=== PATIENT | male | born 1950 | race Caucasian/White ===

== ENCOUNTER 2018-05-03 05:19 | Inpatient (IN) ==
[2018-05-03] MEDS ORDERED: Chlorhexidine Gluconate 2% 1 Pack (2 Cloths) TOPICAL ONE (05:42)
[2018-05-03] MEDS ORDERED: Metoprolol Tartrate 25 MG Tablet PO ONE (05:42)
[2018-05-03] MEDS ORDERED: Dexamethasone Inj 20 MG/5 ML Vial IV.PUSH PRN (05:46)
[2018-05-03] MEDS ORDERED: Sodium Chlor 0.9% Inj 500 ML IV.SIG SCH (06:00)
[2018-05-03] MEDS ORDERED: Vancomycin Inj 1,000 MG in Sodium Chlor 0.9% Inj 250 ML IV.SIG SCH (06:00)
[2018-05-03] MEDS ORDERED: Tranexamic Acid Inj 1,430 MG in Sodium Chlor 0.9% Inj 100 ML IV.SIG SCH (06:00)
[2018-05-03] MEDS ORDERED: Chlorhexidine 4% Topical 120 APPLIC/120 ML Bottle TOPICAL SCH (06:00)
[2018-05-03] MEDS ORDERED: Sodium Chlor 0.9% Inj 40 ML, Bupivacaine Liposo PF 1.3% Inj 20 ML P-ARTICULR SCH ×2 (06:00)
[2018-05-03] MEDS ORDERED: Ketorolac Inj 30 MG/ML (IVP) Vial IV.PUSH ONE (06:47)
[2018-05-03] MEDS ORDERED: Neostigmine Inj 5 MG/5 ML Syringe IV.PUSH ONE (06:47)
[2018-05-03] MEDS ORDERED: Glycopyrrolate Inj 1 MG/5 ML Syringe IV.PUSH ONE (06:47)
[2018-05-03] MEDS ORDERED: Lidocaine PF 1% Inj 5 ML Syringe OTHER ONE (06:47)
[2018-05-03] MEDS ORDERED: Post-op Orders (for Pharmacy) OTHER STA (06:50)
[2018-05-03] MEDS ORDERED: HYDROmorphone PF Inj 1 MG/ML Ampul IV.PUSH PRN (06:50)
[2018-05-03] MEDS ORDERED: Zolpidem Tartrate 5 MG Tablet PO PRN (06:50)
[2018-05-03] MEDS: ceFAZolin 2 GM Premix Inj 2 GM/50 ML PIGGYBACK IV.SIG SCH ×2 (06:58→13:09)
[2018-05-03] MEDS ORDERED: Tranexamic Acid Inj 3,000 MG in Sodium Chlor 0.9% Inj 100 ML P-ARTICULR SCH (08:00)
--- NOTE | 2018-05-03 08:52 | XR ---
EXAM DATE: 05/03/2018 8:44 AM EST AGE/SEX: 67 years / Male INDICATIONS: Post op right anterior hip. CLINICAL DATA: This is the patient's initial encounter. Patient reports that signs and symptoms have been present for 1 day and indicates a pain score of Nonresponsive. MEDICAL/SURGICAL HISTORY: None. None. COMPARISON: [facility] [place], PELVIS AP ONLY, 12/25/2010. . CONCLUSION: Fluoroscopic images during right hip arthroplasty. No hardware loosening or new fracture. Electronically signed by: Wong Sanchez MD 05/03/2018 8:51 AM EST
[2018-05-03] MEDS ORDERED: fentaNYL Citrate Inj 100 MCG/2 ML Ampul ONE (09:00)
[2018-05-03] MEDS ORDERED: Morphine Inj 4 MG/ML Vial ONE (09:00)
--- NOTE | 2018-05-03 09:53 | MP ---
cc: Benji Rucker MD DATE OF OPERATION: 05/03/2018 PREOPERATIVE DIAGNOSIS: Right hip osteoarthritis. POSTOPERATIVE DIAGNOSIS: Right hip osteoarthritis. PROCEDURE PERFORMED: Right total hip arthroplasty. SURGEON: Benji Rucker MD. TRANSFORMATION ARCHITECT: DANYELL Mcmullen. ANESTHESIA: General. ESTIMATED BLOOD LOSS: 200 mL. COMPLICATIONS: None. IMPLANTS: DePuy Corail size 12 press-fit standard offset femoral stem, size 54 solid [place] Gription cup, 36 mm highly cross-linked polyethylene neutral liner, +5 neck, 36 mm ceramic head. JUSTIFICATION: The patient is a 67-year-old male with history of severe osteoarthritis involving the right hip. He has severe disabling pain with standing, walking, ambulation with weightbearing, and severe pain at rest. He has failed greater than 3 months of nonoperative conservative treatment to include medication therapy, injections, ambulatory assistive aids, home exercise program, activity modification, and weight loss. X-rays of right hip reveal severe osteoarthritis with [id number] joint space narrowing, subchondral sclerosis, subchondral cyst, osteophyte formation with superior subluxation. The patient was counseled as to the risks, benefits, and alternatives to a total hip arthroplasty. The risks were discussed which include, but are not limited to anesthesia, bleeding, infection, damage to nerves and blood vessels, pain, stiffness, failure of components, fracture dislocations, leg length discrepancies, blood clots, pulmonary embolism, and even . The patient's pain is severe. He favored the benefits over the risks and he did wish to proceed with surgery. PROCEDURE IN DETAIL: Written consent was obtained. The patient was identified by name, taken to the operating room and placed supine on operating table. General endotracheal anesthesia was administered to the patient as well as 2 grams of IV Ancef and 1 gram of IV vancomycin. The right and left feet were placed in the padded traction boots. The right hip and right lower extremity were prepped and draped using isopropyl alcohol, Hibiclens solution, and ChloraPrep solution. After a timeout was performed, a longitudinal incision made over the anterolateral aspect of the right hip. The fascial layer was incised. Dissection was carried over the tensor fascia honorio beneath the rectus femoris to allow exposure of the anterior capsule. Capsulotomy incision was performed. An oscillating saw was used to perform the femoral neck cut. The osteoarthritic femoral head and neck component was removed. A 10 blade scalpel was used to excise the labrum. Sequential reaming begun at size 47 was carried through to a size 54. A solid [place] 54 mm Gription cup was implanted in approximately 45 degrees of abduction and 10 degrees of anteversion. There was good purchase and fixation after insertion of the cup. A screw hole eliminator was placed, followed by the neutral liner. The liner was impacted in place and tested for stability. Attention was turned to the femur where the leg was externally rotated, extended, and adducted. The capsule was released off the undersurface of the greater trochanter to allow for elevation and lateralization of the femur. A box cutting osteotome was easily entered into the intramedullary canal of the femur and was followed by a canal finder and sequential broaching up to size 12. A calcar planer was used to plane the calcar. Trial head and neck combinations were evaluated and final components implanted. With the current components, the leg could achieve full extension down to the ground with external rotation of 70 degrees without evidence of anterior instability or impingement. Fluoroscopic imaging showed appropriate implantation of components. Surgical wound was thoroughly irrigated with sterile saline pulse antibiotic-impregnated solution. The fascial layer was closed with #1 Vicryl suture, subcutaneous layer with 2-0 Vicryl suture, skin was closed with Dermabond. Sterile dressing applied. The patient tolerated the procedure well. No intraoperative complications noted. Sascha Cruz PA-C, was present throughout the entire procedure to include patient positioning and the procedure itself. The medical necessity of a physician virtual customer assistant was indicated in this case due to the complexity of the procedure. He assisted with appropriate manipulation of the leg and also retraction of muscle, tendon, bone, and neurovascular structures. He assisted with preparation of bone and also implantation of the prosthetic replacement. MD EZE Muñoz/martín , 08:39 AM , 08:46 AM
--- NOTE | 2018-05-03 10:16 | XR ---
EXAM DATE: 05/03/2018 10:12 AM EST AGE/SEX: 67 years / Male INDICATIONS: Post-op right hip. CLINICAL DATA: This is the patient's initial encounter. Patient reports that signs and symptoms have been present for 1 day and indicates a pain score of 2/10. MEDICAL/SURGICAL HISTORY: None. None. COMPARISON: [facility], HIP LEFT AP ONLY WO AP PELVIS, 12/25/2010. . FINDINGS: Post surgical changes following right hip replacement are noted. Femoral and acetabular components ar e well seated and satisfactorily aligned. Bony structures remain intact without evidence of acute com plication. Left hip prosthesis from prior replacement is noted. CONCLUSION: Satisfactory postoperative appearance of the right hip and pelvis following replacement. Previous left hip replacement. Electronically signed by: Luke Cristobal MD 05/03/2018 10:14 AM EST
[2018-05-03] MEDS: Senna/Docusate Sodium 8.6/50 MG Tablet PO SCH ×2 (10:55→20:04)
[2018-05-03] MEDS: Multivitamin/Minerals Therapeutic Tablet PO SCH ×2 (10:57→20:52)
[2018-05-03] MEDS: Fenofibrate 145 MG Tablet PO SCH (11:02)
[2018-05-03] MEDS: ceFAZolin 2 GM Premix Inj 2 GM/100 ML BAG IV.SIG SCH ×2 (14:00→17:36)
--- NOTE | 2018-05-03 16:24 | P.CON ---
History of Present Illness Service: [facility] Consult date: 05/03/18 Requesting Physician: Benji Rucker Reason for Consult: Medical management Primary Care Provider: Tristan Miguel DO History of Present Illness: This is a pleasant 67-year-old white male with significant past medical history of multiple myeloma with recent recurrence and stem cell transplant June 2017 , prostate cancer status post radiation completed 2017, osteoarthritis. Patient has history of severe osteoarthritis of the right hip with significant pain and difficulty with activities of daily living. Patient failed outpatient nonoperative treatment therefore surgery was recommended. Patient underwent right total hip arthroplasty. Patient endorses history of multiple myeloma originally diagnosed in 2004 for which she had a stem cell transplant. In June he had a recurrence and had another stem cell transplant at the [facility]. He also completed radiation treatment for prostate cancer December of this year. He is on Revlimid which was stopped prior to surgery because of risk of infection. Last week he received 2 shots of Neupogen. His oncologist is Dr. Steele. Patient denies any recent fever, no chills. No recent infections. Hospitalist services are requested for medical management. Review of Systems All other systems reviewed negative except as stated in HPI PMFSH - History History Provided By: Patient, Family Member - Medical History Medical History: Medical History (Last Reviewed 05/03/18 @ 16:17 by FRANKLIN Mims) History of radiation exposure History of radiation therapy Multiple myeloma Peripheral neuropathy Presence of orthopedic joint implant Right hip pain - Surgical History Surgical History: Surgical History (Last Reviewed 05/03/18 @ 16:17 by FRANKLIN Mims) History of tonsillectomy and adenoidectomy History of total left hip replacement Hx of cataract surgery Hx of kyphoplasty Hx of stem cell transplant - Family History Family History: Family History (Last Updated 05/03/18 @ 16:17 by FRANKLIN Mims) Father Coronary artery disease Mother Coronary artery disease - Social History I have reviewed the patient's Social History: Yes - Tobacco History Second Hand Smoke Exposure: No Tobacco Use In Past 30 Days: No (stopped 03/08/18) Smoking Status: Light tobacco smoker Tobacco Type: Cigars (Quit smoking cigars 2 months ago) - Alcohol History How Often Do You Have a Drink Containing Alcohol: 2 to 3 times a week - Substance Use History Substance History: No History of Abuse - Travel History Recent Travel in the [place] Within the Last 8 Weeks: Yes Recent Travel Out of the Country Within the Last 8 Weeks: No Medications and Allergies Active Medications: Active Medications Hydrocodone Bitart/Acetaminophen (Tarrs 7.5/325) 1 tab PO Q4H PRN PRN Reason: PAIN LESS THAN 5 ON SCALE Last Admin: 05/03/18 11:53 Dose: 1 tab Hydrocodone Bitart/Acetaminophen (Tarrs 7.5/325) 2 tab PO Q6H PRN PRN Reason: PAIN SCALE 5 TO 10 Al Hydroxide/Mg Hydroxide (Milk Of Magnesia Liq) 30 ml PO BID PRN PRN Reason: Mild Constipation Aspirin (Aspirin Chew) 81 mg PO BID COUNTS INCLUDE 234 BEDS AT THE [facility] Last Admin: 05/03/18 10:36 Dose: Not Given Atorvastatin Calcium (Lipitor) 20 mg PO DAILY COUNTS INCLUDE 234 BEDS AT THE [facility] Last Admin: 05/03/18 11:02 Dose: Not Given Chlorhexidine Gluconate (Hibiclens 4% Topical) 1 applicatio TOPICAL ONCE COUNTS INCLUDE 234 BEDS AT THE [facility] Stop: 05/07/18 05:59 Last Admin: 05/03/18 06:00 Dose: 1 applicatio Dexamethasone Sodium Phosphate (Decadron Inj) 10 mg IV.PUSH [employer]OR [employer] PRN PRN Reason: PRE-OP IN OR HOLDING Stop: 05/03/18 22:00 Last Admin: 05/03/18 06:08 Dose: 10 mg Diphenhydramine HCl (Benadryl) 25 mg PO Q6H PRN PRN Reason: ITCHING Fenofibrate (Tricor) 145 mg PO DAILY COUNTS INCLUDE 234 BEDS AT THE [facility] Last Admin: 05/03/18 11:02 Dose: Not Given Hydromorphone HCl (Dilaudid Pf Inj) 1 mg IV.PUSH Q3H PRN PRN Reason: BREAKTHROUGH PAIN Sodium Chloride (Ns Inj) 500 mls @ 30 mls/hr IV.SIG .Q10H COUNTS INCLUDE 234 BEDS AT THE [facility] Last Admin: 05/03/18 06:23 Dose: Not Given Lactated Ringer's (Lr 1000 Ml Inj) 1,000 mls @ 30 mls/hr IV.SIG .Q24H COUNTS INCLUDE 234 BEDS AT THE [facility] Stop: 05/04/18 05:44 Last Admin: 05/03/18 06:05 Dose: 30 mls/hr Cefazolin Sodium/Dextrose (Ancef 2 Gm Premix Inj) 2 gm in 50 mls @ 100 mls/hr IV.SIG [employer] COUNTS INCLUDE 234 BEDS AT THE [facility] Stop: 05/07/18 05:59 Last Admin: 05/03/18 13:09 Dose: 100 mls/hr Vancomycin HCl 1,000 mg/ (Sodium Chloride) 250 mls @ 250 mls/hr IV.SIG [employer] COUNTS INCLUDE 234 BEDS AT THE [facility] Stop: 05/06/18 05:47 Last Infusion: 05/03/18 08:08 Dose: Infused Lactated Ringer's (Lr 1000 Ml Inj) 1,000 mls @ 80 mls/hr IV.CONT .[id number] COUNTS INCLUDE 234 BEDS AT THE [facility] Last Admin: 05/03/18 09:09 Dose: 80 mls/hr Cefazolin/Sodium Chloride (Ancef 2 Gm Premix Inj) 2 gm in 100 mls @ 200 mls/hr IV.SIG Q6H COUNTS INCLUDE 234 BEDS AT THE [facility] Stop: 05/04/18 00:29 Lactulose (Lactulose Liq) 30 ml PO DAILY PRN PRN Reason: SEVERE CONSITIPATION Miscellaneous Information ([facility] Nursing Information) 1 each OTHER UNSCH PRN PRN Reason: SEE LABEL COMMENTS Stop: 05/04/18 08:54 Multivitamins/Minerals (Theragran-M) 1 tab PO BID COUNTS INCLUDE 234 BEDS AT THE [facility] Stop: 07/02/18 08:59 Last Admin: 05/03/18 10:57 Dose: Not Given Ondansetron HCl (Zofran Inj) 4 mg IV.PUSH Q6H PRN PRN Reason: NAUSEA OR VOMITING Povidone Iodine (Betadine 7.5% Scrub) 1 applicatio TOPICAL ONCE COUNTS INCLUDE 234 BEDS AT THE [facility] Stop: 05/07/18 05:59 Senna/Docusate Sodium (Sylvia-Colace) 1 tab PO BID COUNTS INCLUDE 234 BEDS AT THE [facility] Last Admin: 05/03/18 10:55 Dose: 1 tab Sennosides (Senokot) 17.2 mg PO BID PRN PRN Reason: Moderate Constipation Sodium Chloride (Ns Flush) 2 ml IV.FLUSH BID COUNTS INCLUDE 234 BEDS AT THE [facility] Last Admin: 05/03/18 10:57 Dose: 2 ml Sodium Chloride (Ns Flush) 2 ml IV.FLUSH PRN PRN PRN Reason: FLUSH AFTER USING IV ACCESS Zolpidem Tartrate (Ambien) 5 mg PO HS PRN PRN Reason: INSOMNIA Allergies Allergy/AdvReac Type Severity Reaction Status Date / Time No Known Allergies Allergy Verified 05/03/18 06:06 Home Medications Medication Instructions Recorded Confirmed Type acyclovir 400 mg PO BID 04/15/18 05/03/18 History aspirin [Aspirin Low Dose] 81 mg PO DAILY 04/15/18 05/03/18 History atorvastatin 20 mg PO DAILY 04/15/18 05/03/18 History fenofibrate 160 mg PO DAILY 04/15/18 05/03/18 History lenalidomide [Revlimid] 10 mg PO DIRECTED 04/15/18 05/03/18 History multivitamin [Daily Multiple] 1 tab PO DAILY 04/15/18 05/03/18 History omega-3 fatty acids-fish oil [Fish 1 cap PO DAILY 04/15/18 05/03/18 History Oil] Physical Exam Vital signs: Vital Signs 05/03/18 06:10 05/03/18 08:52 05/03/18 09:00 Temperature 98.7 F 97.7 F Pulse Rate 61 71 60 Respiratory Rate 16 20 15 Blood Pressure 146/67 H 111/68 134/62 Pulse Oximetry 98 98 98 05/03/18 09:15 05/03/18 09:30 05/03/18 09:50 Temperature 97.5 F L 97.3 F L Pulse Rate 60 59 L 58 L Respiratory Rate 16 15 16 Blood Pressure 134/67 132/65 123/65 Pulse Oximetry 99 98 97 05/03/18 16:00 Temperature 97.6 F Pulse Rate 73 Respiratory Rate 16 Blood Pressure 130/63 Pulse Oximetry 93 L Intake & Output 05/02/18 05/03/18 05/03/18 18:59 06:59 18:59 Intake Total 1800.3 / 1800.3 Output Total 500 / 500 Balance 1300.3 / 1300.3 Weight 95.4 kg Intake: IV 414.3 / 414.3 Cyklokapron Inj 1,430 MG In NS 114.3 / 114.3 Inj 100 ML @ 200 mls/hr IV.SIG ONCE ANGELIKA Rx#:[id number] Vancomycin Inj 1,000 MG In NS 250 / 250 Inj 250 ML @ 250 mls/hr IV.SIG [employer] ANGELIKA Rx#:[id number] Ancef 2 GM Premix Inj 2 gm In 50 / 50 50 ml @ 100 mls/hr IV.SIG [employer] ANGELIKA Rx#:[id number] Anesthesia Amount 1386 / 1386 Output: Urine 100 / 100 Estimated Blood Loss 400 / 400 Other: Date of Last Bowel Movement 05/03/18 Weight On Admission 95.4 kg Narrative: GENERAL: Well-nourished, well-developed patient in no apparent distress. SKIN: Warm and dry. HEAD: Atraumatic. Normocephalic. EYES: Pupils equal and round. No scleral icterus. No injection or drainage. ENT: No nasal bleeding or discharge. Mucous membranes pink and moist. NECK: Trachea midline. No JVD. CARDIOVASCULAR: Regular rate and rhythm. RESPIRATORY: No accessory muscle use. Clear to auscultation. Breath sounds equal bilaterally. GASTROINTESTINAL: Abdomen soft, non-tender, nondistended. Hepatic and splenic margins not palpable. MUSCULOSKELETAL: Right anterior hip with dressing dry and intact. No other joint abnormalities. Bilateral lower extremities without any clubbing, no cyanosis, no edema. Pedal pulses 2+ bilateral NEUROLOGICAL: Awake and alert. No obvious cranial nerve deficits. Motor grossly within normal limits. Five out of 5 muscle strength in the arms and legs. Normal speech. PSYCHIATRIC: Appropriate mood and affect; insight and judgment normal. Assessment and Plan - Plan 67-year-old male with history of osteoarthritis of right hip, status post right total hip arthroplasty. Status post right total hip arthroplasty Continue with postoperative care Pain management Aspirin for DVT prophylaxis Bowel regimen Physical therapy History of recurrent multiple myeloma, status post stem cell transplant in June 2017. Received 2 shots of Neupogen last week WBC 2.8 on April 15 -CBC in the morning Monitor for fever History of prostate cancer, completed radiation treatment in December 2017 Stable, follow-up as outpatient CBC and BMP in the morning Thank you for this consultation, we will continue to follow Code Status: Full code Discussed Condition With: Patient Discharge Planning: Per ortho team
[2018-05-04] MEDS ORDERED: ceFAZolin 2 GM Premix Inj 2 GM/50 ML PIGGYBACK IV.SIG SCH
[2018-05-04 05:21] LABS: Hematocrit 28.3 % (39.0-51.0); Hemoglobin 9.8 gm/dL (13.0-17.0); Mean Corpuscular HGB Conc 34.6 % (32.0-36.0); Mean Corpuscular Hemoglobin 35.9 pg (27.0-34.0); Mean Corpuscular Volume 103.8 fL (80.0-100.0); Mean Platelet Volume 9.2 fL (7.0-11.0); Platelet Count 73 th/mm3 (150-450); Red Blood Count 2.73 mil/mm3 (4.50-5.90); Red Cell Distribution Width 15.8 % (11.6-17.2); White Blood Count 7.3 th/mm3 (4.0-11.0)
[2018-05-04 05:34] LABS: Carbon Dioxide 26.5 meq/L (21.0-32.0); Potassium 4.1 meq/L (3.5-5.1)
--- NOTE | 2018-05-04 08:14 | P.PNOP ---
Subjective Interval history: pain controlled. ready to go home. Physical Exam Vital signs: Vital Signs 05/03/18 08:52 05/03/18 09:00 05/03/18 09:15 Temperature 97.7 F Pulse Rate 71 60 60 Respiratory Rate 20 15 16 Blood Pressure 111/68 134/62 134/67 Pulse Oximetry 98 98 99 05/03/18 09:30 05/03/18 09:50 05/03/18 16:00 Temperature 97.5 F L 97.3 F L 97.6 F Pulse Rate 59 L 58 L 73 Respiratory Rate 15 16 16 Blood Pressure 132/65 123/65 130/63 Pulse Oximetry 98 97 93 L 05/03/18 20:00 05/04/18 00:00 05/04/18 04:00 Temperature 98.2 F 98.4 F 97.8 F Pulse Rate 77 84 92 H Respiratory Rate 18 17 17 Blood Pressure 152/70 H 144/74 H 123/59 L Pulse Oximetry 94 L 96 96 Intake & Output 05/03/18 05/04/18 05/04/18 18:59 06:59 18:59 Intake Total 2380.3 / 2380.3 1050 / 1050 Output Total 800 / 800 Balance 1580.3 / 1580.3 1050 / 1050 Intake: IV 514.3 / 514.3 1050 / 1050 LR 1000 mL Inj 1,000 ML @ 80 1000 / 1000 mls/hr IV.CONT .[id number] ANGELIKA Rx# :[id number] Cyklokapron Inj 1,430 MG In NS 114.3 / 114.3 Inj 100 ML @ 200 mls/hr IV.SIG ONCE ANGELIKA Rx#:[id number] Vancomycin Inj 1,000 MG In NS 250 / 250 Inj 250 ML @ 250 mls/hr IV.SIG DE[employer] OFFICER ANGELIKA Rx#:[id number] Ancef 2 GM Premix Inj 2 gm In 100 / 100 100 ml @ 200 mls/hr IV.SIG Q6H ANGELIKA Rx#:[id number] Ancef 2 GM Premix Inj 2 gm In 50 / 50 50 / 50 50 ml @ 200 mls/hr IV.SIG Q6H ANGELIKA Rx#:[id number] Oral 480 / 480 Anesthesia Amount 1386 / 1386 Output: Urine 400 / 400 Estimated Blood Loss 400 / 400 Other: # Voids 6 Date of Last Bowel Movement 05/03/18 05/03/18 Narrative: in bed, nad dressing c/d/i thigh soft neg homans nvi Results - Labs CBC & Chem 7: 05/04/18 04:27 05/04/18 04:21 Laboratory Results - last 24 hr 05/04/18 05/04/18 04:21 04:27 WBC 7.3 RBC 2.73 L Hgb 9.8 L Hct 28.3 L MCV 103.8 H MCH 35.9 H MCHC 34.6 RDW 15.8 Plt Count 73 L MPV 9.2 Sodium 144 Potassium 4.1 Chloride 110 H Carbon Dioxide 26.5 Anion Gap 8 BUN 16 Creatinine 1.13 Estimated GFR 65 L Random Glucose 121 H Calcium 8.0 L - Imaging Impressions Hip X-Ray 05/03/18 00:00 CONCLUSION: Fluoroscopic images during right hip arthroplasty. No hardware loosening or new fracture. Hip X-Ray 05/03/18 06:49 CONCLUSION: Satisfactory postoperative appearance of the right hip and pelvis following replacement. Previous left hip replacement. Assessment and Plan - Ortho Post Op Day # 1 - Assessment and Plan s/p R KYM wbat ok to maintain dressing unless saturated asa 81 d/c planning home with [facility] and pt - cleared today f/up dr. forde 2 weeks
--- NOTE | 2018-05-04 08:15 | P.DCO ---
- Physical Therapy Physical Therapy: Gait training, Safety evaluation, Transfer training, bed to chair Hip: Total hip, Protocol: Right Right Lower Extremity Weight Bearing: Weight bearing as tolerated - Nursing RN: 3 days/week x 2 weeks Nursing: Dressing changes Dressing changes: Do not change dressing, Daily dressing change - Certification Need for Home Health services: I have seen patient Aiden Mcghee on 05/04/18. My clinical findings support the need for the requested home health care services because: Need for Home Health Services: Limited ability to care for self, High risk of falls Homebound Certification: I certify that my clinical findings support that this patient is homebound because: Homebound Certification: Post-op weakness, Unsteady gait/balance
[2018-05-04] MEDS: Fenofibrate 145 MG Tablet PO SCH (09:12)
[2018-05-04] MEDS: Senna/Docusate Sodium 8.6/50 MG Tablet PO SCH (09:12)
[2018-05-04] MEDS: Multivitamin/Minerals Therapeutic Tablet PO SCH (09:16)
== END 2018-05-04 10:14 | disposition home health service (06) ==
LOC: HSDI 05:19 → N06 09:43
PROVIDERS: ADMIT Orthopaedic Surgery Sports Medicine; ATTEND Orthopaedic Surgery Sports Medicine